=== PATIENT | female | born 1940 | race Caucasian/White ===

== ENCOUNTER 2021-10-30 11:14 | Emergency (ER) | payer MEDICARE, OTHER ==
[~2021-10-30] VITALS: Ht 172.7 cm; Wt 81.8 kg
[~2021-10-30 11:14] MED LIST: ACET325T21 PO; ASPI-630 PO; BENA20TA84 PO; DILT240C2 PO; DOCU-148 PO; DULA1.5P SQ; ENOX80DI3 SQ; FAMO40TA4 PO; FURO40TA4 PO; INSU100V35 SQ; METF1000 PO; METO-247 PO; OMEG-32 PO; POTA-121 PO; SOLI10TA2 PO; VENL150C6 PO; WARF1TAB69 PO; WARF7.5T45 PO; Warfarin Per Pharmacy MC
--- NOTE | 2021-10-30 12:16 | RAD ---
XR LT TIBIA + FIBULA, XR EXAM OF ANKLE_LEFT 3V History: Fall. Left ankle pain and swelling. Comparison: None. Findings: Decreased osseous mineralization. No fracture or dislocation. The ankle mortise and talar dome are in tact. Degenerative changes of the tibial talar joint. Prominent osteophyte at the dorsal talus. Small Achilles insertion and plantar calcaneal enthesophytes. Diffuse lower extremity swelling, most promi nent at the medial malleolus. Atherosclerotic vascular calcifications. Partially visualized degenerat shanae changes of the knee. Impression: 1. No acute osseous abnormality in the left tibia and fibula and left ankle. Electronically signed by: Wilfred Matamoros MD (10/30/2021 12:13 PM) [id number]
--- NOTE | 2021-10-30 12:30 | RAD ---
CT HEAD AND C-SPINE WO History: Fall. Pain. Comparison: None. Technique: Noncontrast CT of the head and cervical spine. Findings: CT HEAD: There is no evidence for intracranial mass or hemorrhage. There is no hydrocephalus or midline shift. No abnormal extra-axial fluid collections are present. No evidence of acute territorial infarction. Mild prominence of the ventricles and sulci as well as m ild hypoattenuation of the periventricular and deep white matter consistent with senescent and chroni c microvascular ischemic change. The visualized paranasal sinuses and mastoid air cells are clear. The skull and scalp are within normal limits. CT CERVICAL SPINE: There is no evidence for fracture in the cervical spine. Reversal the normal cervical lordosis. Multilevel degenerative disc disease with facet and uncovertebral hypertrophy. No destructive osseous lesions are seen. Atherosclerotic calcifications of the aortic arch and carotid bulbs. Impression: 1. No acute intracranial findings. 2. No acute osseous abnormality in the cervical spine. ------- Exposure: One or more of the following individualized dose reduction techniques were utilized for thi s examination: 1. Automated exposure control 2. Adjustment of the mA and/or kV according to patient size 3. Use of iterative reconstruction technique. Electronically signed by: Wilfred Matamoros MD (10/30/2021 12:28 PM) [id number]
[2021-10-30 14:35] VITALS: BP 155/86
[2021-10-30] MEDS ORDERED: IBUP-1007 PO (15:20)
--- NOTE | 2021-10-30 15:21 | PHYS DOC ---
Past Medical History Past Medical History: Diabetes-Type II, GERD, High Cholesterol, Hypertension Additional Past Medical Histor: CLOTTING FACTOR,PE'S AND DVT'S Past Surgical History: No Surgical History, Cholecystectomy, Hysterectomy Smoking Status: Never Smoker Alcohol Use: None General Adult EDM: Chief Complaint: MECHANICAL FALL HPI: HPI: Patient is a 81-year-old female who presents to the emergency department via EMS television picture tube rebuilder transport from [facility], patient's chief complaint is left ankle pain, states she stumbled and fell while she was in the bathroom, denies hitting her head, states she just twisted her ankle, patient reports she uses a walker and she got her walker caught on something which caused her to fall. Patient denies loss of consciousness, denies dizziness, denies visual disturbances, denies syncopal or near syncopal episodes. Patient denies pain to other parts of her body. States that her ankle hurts, did not take any pain medication or try nonpharmacological pain relief methods prior to arrival to the emergency department. Patient states the assisted living staff called EMS to bring her to the emergency department for evaluation. Patient lives in [facility], has a history of benign proximal positional vertigo, CHF, depression, fibromyalgia, hypertension, lupus erythematosus, NERIS, postconcussive syndrome, type 2 diabetes. Review of Systems: Review of Systems: 14 body systems of review of systems have been reviewed. See HPI for pertinent positives and negative responses, otherwise all other systems are negative, nonpertinent or noncontributory. Constitutional: Negative except as outlined in HPI above. Skin: Negative except as outlined in HPI above. Eyes: Negative except as outlined in HPI above. HENT: Negative except as outlined in HPI above. Respiratory: Negative except as outlined in HPI above. Cardiovascular: Negative except as outlined in HPI above. GI: Negative except as outlined in HPI above. : Negative except as outlined in HPI above. Musculoskeletal: Negative except as outlined in HPI above. Integument: Negative except as outlined in HPI above. Neurologic: Negative except as outlined in HPI above. Endocrine: Negative except as outlined in HPI above. Lymphatic: Negative except as outlined in HPI above. Psychiatric: Negative except as outlined in HPI above. Heart Score: C/O Chest Pain: No Risk Factors: Risk Factors: DM, Current or recent (<one month) smoker, HTN, HLP, family history of CAD, obesity. Risk Scores: Score 0 - 3: 2.5% MACE over next 6 weeks - Discharge Home Score 4 - 6: 20.3% MACE over next 6 weeks - Admit for Clinical Observation Score 7 - 10: 72.7% MACE over next 6 weeks - Early Invasive Strategies Allergies: Allergies: Allergies Coded Allergies Type Severity Reaction Last Updated Verified Penicillins Allergy Intermediate 12/19/20 Yes tetanus toxoid, adsorbed Allergy Intermediate 12/19/20 Yes Physical Exam: PE: Constitutional: Well developed, well nourished, no acute distress, non-toxic appearance. 81-year-old female in no apparent distress. HENT: Normocephalic, atraumatic. No contusions or abrasions of the scalp appreciated. Eyes: Conjunctiva normal, no discharge. Neck: Normal range of motion, no stridor. There is no nuchal rigidity, no meningismus signs. No pain to palpation of the muscular skeletal structures of the neck. Cardiovascular: No cyanosis appreciated, distal cap refill less than 2 seconds. Lungs & Thorax: Patient is in no respiratory distress, no audible adventitious lung sounds appreciated. Abdomen: Nontender, no abnormalities noted. Skin: Warm, dry, no erythema, no rash. Back: No tenderness, no deformities. Extremities: No tenderness, no cyanosis, no clubbing, ROM intact, no edema. Exc ept for left lower extremity ankle, swelling to medial and lateral malleoli are structures, diffuse swelling over the medial lateral malleoli are ankle structures, +2 dorsalis pedis pulse equal bilateral lower extremities, distal cap refill less than 2 seconds equal bilateral lower extremities. Limited passive range of motion related to pain. There is no crepitus appreciated. No skin discoloration appreciated. Neurologic: Alert and oriented to self only, this is at baseline per television picture tube rebuilder report per report they were given by skilled nursing staff, normal motor function, normal sensory function, no focal deficits noted. Psychologic: Affect normal, judgement normal, mood normal. Current Patient Data: Vital Signs: Vital Signs Date Time Temp Pulse Resp B/P (MAP) Pulse Ox O2 Delivery O2 Flow Rate FiO2 10/30/21 11:15 98.0 79 18 142/69 (93) 97 Room Air 98.0 EKG: EKG: [] Radiology/Procedures: Radiology/Procedures: PROCEDURE: CT HEAD AND CERVICAL SPINE WO CT HEAD AND C-SPINE WO History: Fall. Pain. Comparison: None. Technique: Noncontrast CT of the head and cervical spine. Findings: CT HEAD: There is no evidence for intracranial mass or hemorrhage. There is no hydrocephalus or midline shift. No abnormal extra-axial fluid collections are present. No evidence of acute territorial infarction. Mild prominence of the ventricles and sulci as well as mild hypoattenuation of the periventricular and deep white matter consistent with senescent and chronic microvascular ischemic change. The visualized paranasal sinuses and mastoid air cells are clear. The skull and scalp are within normal limits. CT CERVICAL SPINE: There is no evidence for fracture in the cervical spine. Reversal the normal cervical lordosis. Multilevel degenerative disc disease with facet and uncovertebral hypertrophy. No destructive osseous lesions are seen. Atherosclerotic calcifications of the aortic arch and carotid bulbs. Impression: 1. No acute intracranial findings. 2. No acute osseous abnormality in the cervical spine. ------- Exposure: One or more of the following individualized dose reduction techniques were utilized for this examination: 1. Automated exposure control 2. Adjustment of the mA and/or kV according to patient size 3. Use of iterative reconstruction technique. Electronically signed by: Wilfred Matamoros MD (10/30/2021 12:28 PM) [id number] REASON: Stumble and fall, left ankle swelling PROCEDURE: TIBIA FIBULA LEFT XR LT TIBIA + FIBULA, XR EXAM OF ANKLE_LEFT 3V History: Fall. Left ankle pain and swelling. Comparison: None. Findings: Decreased osseous mineralization. No fracture or dislocation. The ankle mortise and talar dome are intact. Degenerative changes of the tibial talar joint. Prominent osteophyte at the dorsal talus. Small Achilles insertion and plantar calcaneal enthesophytes. Diffuse lower extremity swelling, most prominent at the medial malleolus. Atherosclerotic vascular calcifications. Partially visualized degenerative changes of the knee. Impression: 1. No acute osseous abnormality in the left tibia and fibula and left ankle. Electronically signed by: Wilfred Matamoros MD (10/30/2021 12:13 PM) [id number] Course & Med Decision Making: Course & Med Decision Making Pertinent Labs and Imaging studies reviewed. (See chart for details) 81-year-old female, vital signs reviewed, presents to the emergency department concerning left ankle pain and swelling after a stumble and fall this morning. Patient's physical complaint and presentation are consistent with patient's explanation of events. Will order urinalysis assay, left ankle x-ray, CT head and C-spine. Patient's imaging unremarkable for acute process, there are no ankle fractures. Discussed with patient all findings, patient's DPOA who is her son is at bedside, discussed all findings with patient's DPOA, and Abundio wrap and ankle stirrup splint was placed, patient did get up from the bed and walk approximately 10 feet without assistance. States that her ankle did hurt some during this. Discussed with patient will prescribe ibuprofen for discomfort, discussed ice packs 30 minutes on and 30 minutes off while awake for the next 48 - 72 hours. Reevaluation by primary care physician this week. Discussed return to ER precautions and concerns. Patient and patient's son gave verbal understanding of and are amenable to ED discharge planning. Patient's son states he will transport patient back to her assisted living facility. Discussed with the patient all findings and diagnostic testing as well as the need to follow-up with their primary care provider for further evaluation and treatment or return to the ED if any new or worsening symptoms. Strict return precautions were also discussed at length, the patient voiced understanding and agreement with the discharge planning. The patient was nontoxic in appearance, in no apparent distress, and hemodynamically stable at the time of disposition. Aletha Disclaimer: Aletha Disclaimer: This electronic medical record was generated, in whole or in part, using a voice recognition dictation system. Departure Departure Impression: Primary Impression: Left ankle sprain Qualified Codes: S93.402A - Sprain of unspecified ligament of left ankle, initial encounter Additional Impression: Fall at home Qualified Codes: W19.XXXA - Unspecified fall, initial encounter; Y92.009 - Unspecified place in unspecified non-institutional (private) residence as the place of occurrence of the external cause Disposition: 01 HOME / SELF CARE / HOMELESS Condition: GOOD Referrals: UNKNOWN PCP NAME (PCP) Patient Instructions: Ankle Sprain, Elastic Bandage and RICE, Fall Prevention and Home Safety, Splint Care-Brief Additional Instructions: You were seen today in the emergency department for left ankle pain after a stumble and fall this morning.. Your ankle x-ray did not show any concerning findings of injury, your bones are not broken. However there is swelling around the ankle. Please use ice packs 30 minutes on and 30 minutes off while awake for the next 48 to [address] Abundio wrap and splint during ambulation. As we discussed these sprains responded well to RICE therapy, this is a acronym for rest, ice, compression, and elevation. Please have your primary care doctor reevaluate your ankle in approximately 5 to 7 days. I am prescribing you ibuprofen to take for aches and pains. Thank you for visiting our Emergency Department. It was a pleasure taking care of you today in the emergency department and we appreciate you trusting us with your care. If any additional problems come up don't hesitate to return to visit us. Please follow up with your primary care provider so they can plan additional care if needed and know about the problem that you had. If symptoms worsen come back to the Emergency Department. Any concerning symptoms that start such as chest pain, shortness of air, weakness or numbness on one side of the body, running high fevers or any other concerning symptoms return to the ER. Scripts Ibuprofen (IBUPROFEN) 600 Mg Tablet 600 MG PO PRN Q6HRS PRN for INFLAMMATION, #20 TAB 0 Refills Prov: LIN LUGO APRN 10/30/21 LIN LUGO APRN Oct 30, 2021 15:21
== END 2021-10-30 15:35 | disposition home or self-care (01) ==
LOC: ER 11:14
DX: S93.402A Sprain of unspecified ligament of left ankle, initial encounter (principal); K21.9 Gastro-esophageal reflux disease without esophagitis; E11.9 Type 2 diabetes mellitus without complications; E78.00 Pure hypercholesterolemia, unspecified; I10 Essential (primary) hypertension; Z88.0 Allergy status to penicillin; Z88.7 Allergy status to serum and vaccine; W18.39XA Other fall on same level, initial encounter; Y93.89 Activity, other specified; Y92.098 Other place in other non-institutional residence as the place of occurrence of the external cause; Y99.8 Other external cause status
CPT/HCPCS: 29515; 73590; 73610; A6450; 99285-25

== ENCOUNTER → 2021-11-29 | Outpatient (CLI) | payer MEDICARE, OTHER ==
[2021-10-30 14:35] VITALS: BP 155/86
[~2021-11-29] MED LIST changes: +IBUP-1007 PO
--- NOTE | 2021-11-29 15:50 | CARD ---
MR#: [id number] Date of Study: 11/29/2021 Ordering Physician: SHARON RODRIGUEZ, Referring Physician: SHARON RODRIGUEZ, Tech: Rosa Suarez [facility] APPROV[facility] REPORT EXAM: Two-dimensional and M-mode echocardiogram with Doppler and color Doppler. Other Information Quality : GoodHR: 79bpm Rhythm : NSR INDICATION Cardiomyopathy RISK FACTORS Hypertension 2D DIMENSIONS RVDd3.2 (2.9-3.5cm)Left Atrium(2D)3.6 (1.6-4.0cm) IVSd1.4 (0.7-1.1cm)Aortic Root(2D)3.7 (2.0-3.7cm) LVDd4.0 (3.9-5.9cm)LVOT Diameter2.1 (1.8-2.4cm) PWd1.1 (0.7-1.1cm)LVDs3.2 (2.5-4.0cm) FS (%) 20.3 %SV29.8 ml LVEF(%)41.9 (>50%) Aortic Valve AoV Peak Jass.136.9cm/sAoV VTI20.8cm AO Peak GR.7.5mmHgLVOT Peak Jass.71.2cm/s LVOT VTI 8.82cmAO Mean GR.5mmHg KAMILAH (VMAX)1.95lo5AMH (VTI)1.46cm2 AI P 1/2 [id number] Mitral Valve MV A Aakoojkb686.9cm/s Pulmonary Valve PV Peak Gyvxjmpo64.9cm/sPV Peak Grad.3mmHg Tricuspid Valve TR P. Qwiglyol624vj/sRAP [id number] TR Peak Gr.53rhQfPXXT16pwYf LEFT VENTRICLE The left ventricle is normal size. There is normal left ventricular wall thickness. Left ventricle sy stolic function is moderately impaired. The Ejection Fraction is 35-40%. There is a moderate global h ypokinesis. Tissue Doppler imaging reveals moderate left ventricular diastolic dysfunction. No left v entricle thrombus noted on this study. There is no ventricular septal defect visualized. There is no left ventricular aneurysm. There is no mass noted in the left ventricle. RIGHT VENTRICLE The right ventricle is normal size. There is normal right ventricular wall thickness. The right ventr icular systolic function is normal. ATRIA The left atrium is severely dilated. The right atrium is mildly dilated. The interatrial septum is in tact with no evidence for an atrial septal defect or patent foramen ovale as noted on 2-D or Doppler imaging. AORTIC VALVE The aortic valve is mildly thickened. Doppler and Color Flow revealed mild aortic regurgitation. Ther e is no aortic valvular stenosis. There is no aortic valvular vegetation. MITRAL VALVE The mitral valve is normal in structure and function. There is no evidence of mitral valve prolapse. There is no mitral valve stenosis. Doppler and Color Flow revealed mild mitral regurgitation. TRICUSPID VALVE The tricuspid valve is normal in structure and function. Doppler and Color Flow revealed moderate tri cuspid regurgitation. The pulmonary artery systolic pressure is estimated at 40-50 mmHg. There is no tricuspid valve prolapse or vegetation. There is no tricuspid valve stenosis. PULMONIC VALVE There is no pulmonic valvular regurgitation. There is no pulmonic valvular stenosis. GREAT VESSELS The aortic root is normal in size. The ascending aorta is normal in size. The IVC is normal in size a nd collapses >50% with inspiration. PERICARDIAL EFFUSION There is no pleural effusion. There is no evidence of significant pericardial effusion. Critical Notification Critical Value: No <Conclusion> Left ventricle systolic function is moderately impaired. The Ejection Fraction is 35-40%. There is a moderate global hypokinesis. Doppler and Color Flow revealed mild aortic regurgitation. Doppler and Color Flow revealed mild mitral regurgitation. Doppler and Color Flow revealed moderate tricuspid regurgitation. The pulmonary artery systolic press ure is estimated at 40-50 mmHg. Signed by : Mitch Chacko, Electronically Approved : 11/29/2021 15:50:19
== END ==
LOC: ECHO 14:15
PROVIDERS: ATTEND Internal Medicine Cardiovascular Disease
DX: I08.3 Combined rheumatic disorders of mitral, aortic and tricuspid valves (principal); I42.9 Cardiomyopathy, unspecified
CPT/HCPCS: 93306; C8929